=== PATIENT | male | born 1995 | race Caucasian/White ===

== ENCOUNTER 2018-11-05 17:59 | Emergency (ER) | payer OTHER ==
[~2018-11-05] VITALS: Ht 175.3 cm; Wt 81.6 kg
[2018-11-05 18:24] VITALS: Ht 175.3 cm; Wt 81.6 kg
[2018-11-05 21:15] VITALS: BP 129/75
== END 2018-11-05 21:15 | disposition home or self-care (01) ==
LOC: ED 17:59
DX: L73.8 Other specified follicular disorders (principal)

== ENCOUNTER → 2019-06-04 | Outpatient (CLI) | payer OTHER ==
[2019-06-04 13:36] LABS: BASOPHIL % 1.4 % (0-2); PLATELET COUNT 161 x10^3mcL (130-400); RED CELL DISTRIBUTION WIDTH 13.3 % (11.5-14.5)
[2019-06-04 15:35] LABS: ALBUMIN 4.1 g/dL (3.4-5.0); ALKALINE PHOSPHATASE 75 U/L (46-116); ALT/SGPT 28 U/L (16-63); AST/SGOT 20 U/L (15-37); BILIRUBIN DIRECT 0.13 mg/dL (0.0-0.2); BILIRUBIN TOTAL 0.5 mg/dL (0.20-1.00); CALCIUM 8.8 mg/dL (8.5-10.1); CARBON DIOXIDE 29.9 mmol/L (21-32); CHOLESTEROL 150 mg/dL (<200); CREATININE SERUM 0.8 mg/dL (0.7-1.3); GFR1 > 60 mL/min; GLUCOSE SERUM 86 mg/dL (74-106); TOTAL PROTEIN, SERUM 8.1 g/dL (6.4-8.2)
[2019-06-04 15:42] LABS: CHLORIDE SERUM 102 mmol/L (98-107); POTASSIUM SERUM 3.8 mmol/L (3.5-5.1); SODIUM SERUM 140 mmol/L (136-145)
[2019-06-04 15:43] LABS: CHOLESTEROL/HDL RATIO 1.8; HDL CHOLESTEROL 83 mg/dL (40-60); TRIGLYCERIDES 28 mg/dL (<150)
== END | disposition home or self-care (01) ==
LOC: LB 13:00
PROVIDERS: Internal Medicine
DX: Z00.00 Encounter for general adult medical examination without abnormal findings (principal)
CPT/HCPCS: 87491; 87591